=== PATIENT | female | born 1990 | race Caucasian/White ===

== ENCOUNTER 2016-12-29 11:24 | Outpatient (CLI) | payer OTHER ==
[~2016-12-29] VITALS: Ht 160 cm; Wt 66.2 kg
[~2016-12-29 11:24] MED LIST: ADVAIR 500/501 DISK IH; ALBUTEROL1.25 MG/3 IH; Advair 500/50 Diskus IH; Advair HFA 115/21 IH; DECADRON1 MG PO; Decadron PO; Flovent 220 mcg IH; Keflex PO; MOTRIN600 MG PO; Motrin PO; NAPROXEN500 MG PO; NATALCARE RX1 TABLET PO; OMEPRAZOLE20 MG; PERCOCET 5/31 TABLET PO; PRENACARE TABL1 EACH PO; PRENATAL TABLE1 EAC3 PO; PROAIR HFA8.5 GM IH; PROVENTIL,2.5 MG/0.5 IH; Protonix PO; Proventil,Ventolin H IH; SPIRIVA1 INHALATI IH; Tylenol Extra Streng PO; VENTOLIN HFA18 GM IH; ZOFRAN ODT4 MG PO; Zithromax PO
[2016-12-29] MEDS ORDERED: NEXIUM20 MG PO (11:39)
[2016-12-29] MEDS ORDERED: PRENATAL TABLE1 EAC3 PO (11:40)
[2016-12-29 11:42] VITALS: BP 104/63
[2016-12-29 12:10] LABS: EOSINOPHIL (%) 1.3 % (0-5); EOSINOPHIL COUNT 0.1 K/uL (0-0.3); IMMATURE GRANULOCYTE (%) 0.8 % (0.0-0.7); IMMATURE GRANULOCYTE COUNT 0.1 K/uL; INSTRUMENT ABS NEUTROPHIL CT 6.9 K/uL; LYMPHOCYTE COUNT 1.8 K/uL (1.0-2.8); MCH 32.4 PG (29.0-34.0); MCHC 33.9 G/DL (30.0-36.0); MCV 95.5 FL (83-99); MEAN PLAT.VOLUME 9.1 uM^3 (9.5-12.4); MONOCYTE (%) 6.6 % (3-12); MONOCYTE COUNT 0.6 K/uL (0-0.8); NEUTROPHIL (%) 72.2 % (45-76); NEUTROPHIL COUNT 6.9 K/uL (1.8-6.4); PLATELET COUNT 204 K/uL (156-360); RBC DIS.WIDTH-CV 14.2 % (11.8-14.6); RBC DIS.WIDTH-SD 49.7 % (39-53); RED BLOOD COUNT 3.77 M/uL (3.80-5.20); WHITE BLOOD COUNT 9.5 K/uL (4.1-10.2)
[2016-12-29 12:21] LABS: CHLORIDE 109 mEq/L (99-109); SODIUM 138 mEq/L (136-147)
[2016-12-29 12:23] LABS: GLUCOSE 81 mg/dL (70-99)
[2016-12-29 12:24] LABS: ANION GAP 10 MEQ/L (2-14)
[2016-12-29 12:26] LABS: ALKALINE PHOSPHATASE 43 IU/L (3-129)
[2016-12-29 12:27] LABS: GFR ESTIMATE (CALCULATED) > 59 mL/min/
[2016-12-29 12:28] LABS: UREA NITROGEN (BUN) 10 mg/dL (9-23)
[2016-12-29 14:03] LABS: ADD MIUA? YES; BILIRUBIN NEGATIVE; BLOOD NEGATIVE; COLOR AMBER ((YELLOW)); GLUCOSE (STRIP) NEGATIVE; KETONES 80; LEUKOCYTES NEGATIVE; NITRITE NEGATIVE; PROTEIN (STRIP) 100; SPECIFIC GRAVITY 1.027 (1.000-1.030)
[2016-12-29 14:27] LABS: AMPHETAMINES QUANT VALUE 0 NG/ML; BARBITUATES QUANT VALUE 0 NG/ML; BENZODIAZEPINES QUANT VALUE 0 NG/ML; BENZODIAZEPINES, URINE SCREEN Negative (200 ng/mL); OPIATES QUANTITATIVE VALUE 0 NG/ML; PHENCYCLIDINE QUANT VALUE 0 NG/ML
[2016-12-29 14:35] LABS: BACTERIA NONE SEEN /HPF; EPITHELIAL CELLS 1+ /HPF; MUCUS 4+ /LPF; RED BLOOD CELLS 0-5 /HPF (0-5); UCUL ADDED? NO; WHITE BLOOD CELLS 0-5 /HPF (0-5)
== END 2016-12-29 17:19 | disposition home or self-care (01) ==
LOC: LDRP-OP 11:24 → 2WEST 11:25
PROVIDERS: Nurse Practitioner
DX: O21.9 Vomiting of pregnancy, unspecified (principal); O99.332 Smoking (tobacco) complicating pregnancy, second trimester; O99.342 Other mental disorders complicating pregnancy, second trimester; O99.512 Diseases of the respiratory system complicating pregnancy, second trimester; F17.210 Nicotine dependence, cigarettes, uncomplicated; F31.9 Bipolar disorder, unspecified; J44.9 Chronic obstructive pulmonary disease, unspecified; F41.0 Panic disorder [episodic paroxysmal anxiety]; Z3A.22 22 weeks gestation of pregnancy
CPT/HCPCS: 59025; 80053; 80306 90; 81003; 85025; G0378; J2405; J7120

== ENCOUNTER 2017-02-19 17:46 | Emergency (ER) | payer OTHER ==
[~2017-02-19] VITALS: Ht 160 cm; Wt 69.4 kg
[~2017-02-19 17:46] MED LIST changes: +NEXIUM20 MG PO
[2017-02-19] MEDS ORDERED: AUGMENTIN875 MG PO (19:10)
[2017-02-19] MEDS ORDERED: VIGAMOX 0.60 DROP/3 LEFT EYE (19:10)
[2017-02-19 19:19] VITALS: BP 111/78
== END 2017-02-19 19:20 | disposition home or self-care (01) ==
LOC: EME 17:46
DX: O99.89 Other specified diseases and conditions complicating pregnancy, childbirth and the puerperium (principal); H10.9 Unspecified conjunctivitis; O99.333 Smoking (tobacco) complicating pregnancy, third trimester; F17.200 Nicotine dependence, unspecified, uncomplicated; Z3A.30 30 weeks gestation of pregnancy
CPT/HCPCS: 87070; 87075; 87077; 87181; 87205; 99281; 99284

== ENCOUNTER 2017-04-28 20:21 | Outpatient (CLI) | payer OTHER ==
[~2017-04-28] VITALS: Ht 160 cm; Wt 70.0 kg
[~2017-04-28 20:21] MED LIST changes: +AUGMENTIN875 MG PO; +VIGAMOX 0.60 DROP/3 LEFT EYE
[2017-04-28 20:36] VITALS: BP 119/70
[2017-04-28] MEDS ORDERED: PROAIR HFA8.5 GM IH (21:17)
[2017-04-29] MEDS ORDERED: MOTRIN800 MG PO (20:32)
== END 2017-04-28 21:37 | disposition home or self-care (01) ==
LOC: LDRP-OP → 2WEST 20:22 → LDRP-OP 06-01 20:10
DX: O47.1 False labor at or after 37 completed weeks of gestation (principal); Z3A.39 39 weeks gestation of pregnancy
CPT/HCPCS: 59025; C1755; G0378

== ENCOUNTER 2017-04-29 07:26 | Inpatient (IN) | payer OTHER ==
[~2017-04-29] VITALS: Ht 165.1 cm; Wt 70.3 kg
[2017-04-29] VITALS (25 sets, daily range): BP systolic 85–130; BP diastolic 50–70
[2017-04-29 09:52] LABS: EOSINOPHIL (%) 1.9 % (0-5); EOSINOPHIL COUNT 0.2 K/uL (0-0.3); HEMATOCRIT 33.9 % (36.0-46.0); IMMATURE GRANULOCYTE (%) 0.8 % (0.0-0.7); IMMATURE GRANULOCYTE COUNT 0.1 K/uL; INSTRUMENT ABS NEUTROPHIL CT 7.2 K/uL; LYMPHOCYTE COUNT 2.4 K/uL (1.0-2.8); MCH 32.4 PG (29.0-34.0); MCHC 34.2 G/DL (30.0-36.0); MCV 94.7 FL (83-99); MEAN PLAT.VOLUME 9.9 uM^3 (9.5-12.4); MONOCYTE (%) 8.8 % (3-12); NEUTROPHIL (%) 66.2 % (45-76); NEUTROPHIL COUNT 7.2 K/uL (1.8-6.4); PLATELET COUNT 217 K/uL (156-360); RBC DIS.WIDTH-CV 14.4 % (11.8-14.6); RBC DIS.WIDTH-SD 49.6 % (39-53); RED BLOOD COUNT 3.58 M/uL (3.80-5.20); WHITE BLOOD COUNT 10.9 K/uL (4.1-10.2)
[2017-04-29 10:59] LABS: AMPHETAMINE NEGATIVE (500 ng/mL); BARBITURATES NEGATIVE (200 ng/mL); BENZODIAZEPINES NEGATIVE (150 ng/mL); COCAINE NEGATIVE (150 ng/mL); INTERNAL CONTROLS VALID? YES; METHADONE NEGATIVE (200 ng/mL); METHAMPHETAMINE NEGATIVE (500 ng/mL); OPIATES (MORPHINE) NEGATIVE (100 ng/mL); OXYCODONE NEGATIVE (100 ng/mL); PHENCYCLIDINE NEGATIVE (25 ng/mL); PROPOXYPHENE NEGATIVE (300 ng/mL); THC CANNABINOIDS NEGATIVE (50 ng/mL); TRICYCLIC ANTIDEPRESSANTS NEGATIVE (300 ng/mL)
[2017-04-29] MEDS ORDERED: MOTRIN800 MG PO (20:32)
[2017-04-30 07:43] VITALS: BP 100/56
[2017-04-30 15:14] VITALS: BP 94/58
== END 2017-04-30 19:37 | disposition home or self-care (01) | DRG 775 ==
LOC: LDRP-OP 07:26 → 2WEST 07:27 → LDRP-OP 21:50 → 2WEST 04-30 19:37 → LDRP-OP 06-01 21:42
PROVIDERS: Midwife
DX: O99.324 Drug use complicating childbirth (principal); O99.344 Other mental disorders complicating childbirth; F31.9 Bipolar disorder, unspecified; F12.90 Cannabis use, unspecified, uncomplicated; O99.334 Smoking (tobacco) complicating childbirth; Z3A.39 39 weeks gestation of pregnancy; Z37.0 Single live birth; F17.200 Nicotine dependence, unspecified, uncomplicated
CPT/HCPCS: 59025; 85025; C1726; C1755; G0378; J0595; J3010; J7120

== ENCOUNTER 2018-03-30 21:05 | Emergency (ER) | payer OTHER ==
[~2018-03-30] VITALS: Ht 160 cm; Wt 56.1 kg
[~2018-03-30 21:05] MED LIST changes: +AMOXICILLIN500 M1 PO; +CEPACOL SORE T1 EAC9 MM; +MOTRIN800 MG PO
[2018-03-30 21:45] LABS: HEMOGLOBIN 12.8 G/DL (11.9-15.5); MCH 30.8 PG (29.0-34.0); MCHC 33.7 G/DL (30.0-36.0); MCV 91.3 FL (83-99); PLATELET COUNT 209 K/uL (156-360); RED BLOOD COUNT 4.16 M/uL (3.80-5.20); WHITE BLOOD COUNT 12.1 K/uL (4.1-10.2)
[2018-03-30 22:10] LABS: CHLORIDE 106 mEq/L (99-109); POTASSIUM 3.9 mEq/L (3.7-5.4); SODIUM 137 mEq/L (136-147)
[2018-03-30 22:12] LABS: GLUCOSE 96 mg/dL (70-99)
[2018-03-30 22:15] LABS: CREATININE 0.8 mg/dL (0.6-1.3); GFR ESTIMATE (CALCULATED) > 59 mL/min/
[2018-03-30 22:16] LABS: UREA NITROGEN (BUN) 9 mg/dL (9-23)
[2018-03-30 22:35] LABS: ALBUMIN 4.3 g/dL (3.2-4.8)
[2018-03-30 22:38] LABS: TOTAL PROTEIN 6.7 g/dL (6.4-8.3)
[2018-03-30 22:40] LABS: TOTAL BILIRUBIN 1.6 mg/dL (0.0-1.0)
[2018-03-30 22:41] LABS: ALKALINE PHOSPHATASE 77 IU/L (3-129)
[2018-03-30 22:43] LABS: AST (GOT) 17 IU/L (2-34); DIRECT BILIRUBIN 0.6 mg/dL (0.0-0.3)
[2018-03-30 22:44] LABS: ALT (GPT) 17 IU/L (3-49); LIPASE 11 U/L (1.0-51.0)
[2018-03-30 22:50] LABS: QUANTITATIVE HCG < 4.0 MIU/ML
[2018-03-30 23:20] LABS: APPEARANCE CLOUDY ((CLEAR)); BILIRUBIN NEGATIVE; BLOOD NEGATIVE; COLOR YELLOW ((YELLOW)); GLUCOSE (STRIP) NEGATIVE; KETONES NEGATIVE; LEUKOCYTES NEGATIVE; NITRITE NEGATIVE; PROTEIN (STRIP) 30; SPECIFIC GRAVITY 1.026 (1.000-1.030)
[2018-03-31] MEDS ORDERED: FLEXERIL10 MG PO (00:21)
[2018-03-31 00:27] LABS: BACTERIA 2+ /HPF; EPITHELIAL CELLS 3+ /HPF; MUCUS 3+ /LPF; RED BLOOD CELLS NONE SEEN /HPF (0-5); UCUL ADDED? YES; WHITE BLOOD CELLS 0-5 /HPF (0-5)
[2018-03-31 00:28] VITALS: BP 103/65
== END 2018-03-31 00:29 | disposition home or self-care (01) ==
LOC: EME 21:05
PROVIDERS: Emergency Medicine
DX: M79.1 Myalgia (principal); J02.0 Streptococcal pharyngitis; S39.012A Strain of muscle, fascia and tendon of lower back, initial encounter; X58.XXXA Exposure to other specified factors, initial encounter; R51 Headache; R10.11 Right upper quadrant pain; R05 Cough; J44.9 Chronic obstructive pulmonary disease, unspecified; F17.200 Nicotine dependence, unspecified, uncomplicated
CPT/HCPCS: 71046; 76705; 80048; 80076; 81003; 83690; 84702; 85027; 87086; 87651 90; 99281; 99285